=== PATIENT | female | born 1940 | race Caucasian/White ===

== ENCOUNTER 2022-03-05 19:28 | Emergency (ER) | payer MEDICARE, OTHER ==
[2022-03-05 20:44] LABS: #Basophils 0.1 thou/uL (0.0-0.2); #Eosinphils 0.2 thou/uL (0.0-0.7); #Lymphocytes 1.4 thou/uL (1.20-3.40); #Monocytes 1.5 thou/uL (0.11-0.59); #Neutrophils 11.2 thou/uL (1.40-6.50); %Basophils 0.8 % (0.0-1.0); %Eosinophils 1.1 % (0.0-10.0); %Lymphocytes 9.5 % (21.0-51.0); %Monocytes 10.6 % (0.0-10.0); Hemoglobin 12.7 g/dL (12.0-16.0); Mean Corpuscular HGB CONC 32.6 g/dL (32.0-36.0); Mean Corpuscular Hemoglobin 32.6 pg (27.0-31.0); Mean Corpuscular Volume 100.2 fL (78.0-98.0); Mean Platelet Volume 7.4 fL (7.4-10.4); Platelet Count 170 thou/uL (130-400); RBC Distribution Width 13.6 % (11.5-14.5); Red Blood Cell (RBC) Count 3.88 mill/uL (4.20-5.40); White Blood Cell (WBC) Count 14.4 thou/uL (4.8-10.8)
[2022-03-05 20:54] LABS: INR-International Normal Ratio 1.1; Prothrombin Time 14.7 sec (12.0-14.7)
[2022-03-05 21:04] LABS: ALT (SGPT) 14 U/L (8-55); AST (SGOT) 27 U/L (5-34); Albumin 3.1 g/dL (3.4-4.8); Alkaline Phosphatase 57 U/L (40-110); Anion Gap 16 mmol/L (10-20); BUN (Urea Nitrogen) 18 mg/dL (9.8-20.1); Bilirubin, Total 1.3 mg/dL (0.2-1.2); Calc. Creatinine Clearance 0 mL/min (70-130); Calcium 8.6 mg/dL (7.8-10.44); Carbon Dioxide 20 mmol/L (23-31); Chloride 109 mmol/L (98-107); Globulin 2.8 g/dL (2.4-3.5); Glucose 80 mg/dL (83-110); Potassium 3.9 mmol/L (3.5-5.1); Protein, Total 5.9 g/dL (5.8-8.1); Sodium 141 mmol/L (136-145)
[2022-03-05] MEDS ORDERED: Morphine 4 MG/ML VIAL ONE (23:31)
[2022-03-05] MEDS ORDERED: Sulfameth/Trimethoprim DS 800-160mg TAB ONE (23:32)
[2022-03-05] MEDS ORDERED: Cephalexin 500 MG CAP ONE (23:32)
== END 2022-03-06 00:20 | disposition short-term general hospital (02) ==
LOC: MADERS 19:28
DX: S32.591A Other specified fracture of right pubis, initial encounter for closed fracture (principal); S32.511A Fracture of superior rim of right pubis, initial encounter for closed fracture; E05.90 Thyrotoxicosis, unspecified without thyrotoxic crisis or storm; F17.210 Nicotine dependence, cigarettes, uncomplicated; Z79.899 Other long term (current) drug therapy; W19.XXXA Unspecified fall, initial encounter
CPT/HCPCS: 72192; 80053; 85025; 85610; 96374; J2270

== ENCOUNTER 2022-03-11 20:25 | Inpatient (IN) | payer MEDICARE, OTHER ==
[2022-03-11] MEDS ORDERED: Senokot S 8.6-50 MG TAB PO PRN (22:11)
[2022-03-11] MEDS ORDERED: Ondansetron ODT 4 MG TAB PO PRN (22:11)
[2022-03-12] MEDS: Levothyroxine Sodium 88 MCG TAB PO SCH (05:34)
[2022-03-12] MEDS ORDERED: Benzonatate 100 MG CAP PO PRN (06:32)
[2022-03-12] MEDS: Polyethylene Glycol 3350 17 GM Packet PO SCH (08:20)
[2022-03-12] MEDS: Gabapentin 100 MG CAP PO SCH ×2 (08:20→20:14)
[2022-03-12] MEDS: Budesonide 0.5 MG/2 ML NEB NEB SCH ×2 (08:20→20:13)
[2022-03-12] MEDS: Heparin 5,000 UNITS/ML VIAL SC SCH ×2 (08:21→20:13)
[2022-03-12] MEDS: Famotidine 20 MG TAB PO SCH ×2 (08:21→20:14)
[2022-03-12] MEDS: traMADol HCl 50 MG TAB PO PRN (11:16)
[2022-03-12] MEDS: Melatonin 3 MG TAB PO SCH (20:14)
[2022-03-12] MEDS ORDERED: Famotidine 20 MG TAB PO SCH (21:00)
[2022-03-13] MEDS: Levothyroxine Sodium 88 MCG TAB PO SCH (05:19)
[2022-03-13] MEDS: Gabapentin 100 MG CAP PO SCH ×2 (08:53→20:18)
[2022-03-13] MEDS: Famotidine 20 MG TAB PO SCH ×2 (08:53→20:18)
[2022-03-13] MEDS: Polyethylene Glycol 3350 17 GM Packet PO SCH (08:53)
[2022-03-13] MEDS: Heparin 5,000 UNITS/ML VIAL SC SCH ×2 (08:55→20:19)
[2022-03-13] MEDS: Budesonide 0.5 MG/2 ML NEB NEB SCH ×2 (11:40→22:37)
[2022-03-13] MEDS ORDERED: Budesonide 0.5 MG/2 ML NEB ONE (19:43)
[2022-03-13] MEDS: Melatonin 3 MG TAB PO SCH (20:19)
[2022-03-13] MEDS: Cyclobenzaprine 10 MG TAB PO PRN (20:20)
[2022-03-14] MEDS: Levothyroxine Sodium 88 MCG TAB PO SCH (05:46)
[2022-03-14] MEDS: Gabapentin 100 MG CAP PO SCH ×2 (08:30→21:04)
[2022-03-14] MEDS: Famotidine 20 MG TAB PO SCH ×2 (08:31→21:02)
[2022-03-14] MEDS: Budesonide 0.5 MG/2 ML NEB NEB SCH ×2 (08:32→21:05)
[2022-03-14] MEDS: Polyethylene Glycol 3350 17 GM Packet PO SCH (08:34)
[2022-03-14] MEDS: Heparin 5,000 UNITS/ML VIAL SC SCH ×2 (08:36→21:03)
[2022-03-14] MEDS: traMADol HCl 50 MG TAB PO PRN (10:18)
[2022-03-14] MEDS: Melatonin 3 MG TAB PO SCH (21:02)
[2022-03-14] MEDS: Acetaminophen 325 MG TAB PO PRN (21:17)
[2022-03-15] MEDS: Levothyroxine Sodium 88 MCG TAB PO SCH (05:50)
[2022-03-15] MEDS: traMADol HCl 50 MG TAB PO PRN (07:31)
[2022-03-15] MEDS: Gabapentin 100 MG CAP PO SCH ×2 (08:40→21:31)
[2022-03-15] MEDS: Budesonide 0.5 MG/2 ML NEB NEB SCH ×2 (08:40→21:32)
[2022-03-15] MEDS: Polyethylene Glycol 3350 17 GM Packet PO SCH (08:40)
[2022-03-15] MEDS: Famotidine 20 MG TAB PO SCH ×2 (08:40→21:32)
[2022-03-15] MEDS: Heparin 5,000 UNITS/ML VIAL SC SCH ×2 (08:40→21:34)
[2022-03-15] MEDS ORDERED: Milk Of Magnesia 30 ML UDCUP PO PRN (17:46)
[2022-03-15] MEDS: Melatonin 3 MG TAB PO SCH (21:32)
[2022-03-16] MEDS: Levothyroxine Sodium 88 MCG TAB PO SCH (06:11)
[2022-03-16] MEDS: Famotidine 20 MG TAB PO SCH ×2 (08:38→21:54)
[2022-03-16] MEDS: Gabapentin 100 MG CAP PO SCH ×2 (08:38→21:54)
[2022-03-16] MEDS: Polyethylene Glycol 3350 17 GM Packet PO SCH (08:39)
[2022-03-16] MEDS: Budesonide 0.5 MG/2 ML NEB NEB SCH ×2 (08:39→21:56)
[2022-03-16] MEDS: Heparin 5,000 UNITS/ML VIAL SC SCH ×2 (08:40→21:55)
[2022-03-16] MEDS: traMADol HCl 50 MG TAB PO PRN (11:57)
[2022-03-16] MEDS: Melatonin 3 MG TAB PO SCH (21:54)
[2022-03-17] MEDS: Levothyroxine Sodium 88 MCG TAB PO SCH (06:22)
[2022-03-17] MEDS: Famotidine 20 MG TAB PO SCH ×2 (08:37→20:15)
[2022-03-17] MEDS: Gabapentin 100 MG CAP PO SCH ×2 (08:37→20:16)
[2022-03-17] MEDS: Heparin 5,000 UNITS/ML VIAL SC SCH ×2 (08:38→20:16)
[2022-03-17] MEDS: Budesonide 0.5 MG/2 ML NEB NEB SCH ×2 (08:40→20:16)
[2022-03-17] MEDS: Polyethylene Glycol 3350 17 GM Packet PO SCH (08:55)
[2022-03-17] MEDS: traMADol HCl 50 MG TAB PO PRN (09:01)
[2022-03-17] MEDS: Acetaminophen 325 MG TAB PO PRN (17:37)
[2022-03-17] MEDS: Melatonin 3 MG TAB PO SCH (20:17)
[2022-03-18] MEDS: Levothyroxine Sodium 88 MCG TAB PO SCH (05:35)
[2022-03-18] MEDS: Gabapentin 100 MG CAP PO SCH ×2 (08:17→20:05)
[2022-03-18] MEDS: Budesonide 0.5 MG/2 ML NEB NEB SCH ×2 (08:18→20:04)
[2022-03-18] MEDS: Famotidine 20 MG TAB PO SCH ×2 (08:18→20:05)
[2022-03-18] MEDS: Heparin 5,000 UNITS/ML VIAL SC SCH ×2 (08:18→20:08)
[2022-03-18] MEDS: Polyethylene Glycol 3350 17 GM Packet PO SCH (08:31)
[2022-03-18] MEDS: traMADol HCl 50 MG TAB PO PRN (14:36)
[2022-03-18] MEDS: Melatonin 3 MG TAB PO SCH (20:06)
[2022-03-19] MEDS: Levothyroxine Sodium 88 MCG TAB PO SCH (06:26)
[2022-03-19] MEDS: Gabapentin 100 MG CAP PO SCH ×2 (08:17→20:45)
[2022-03-19] MEDS: Famotidine 20 MG TAB PO SCH ×2 (08:17→20:47)
[2022-03-19] MEDS: Polyethylene Glycol 3350 17 GM Packet PO SCH (08:18)
[2022-03-19] MEDS: Heparin 5,000 UNITS/ML VIAL SC SCH ×2 (08:20→20:48)
[2022-03-19] MEDS: Budesonide 0.5 MG/2 ML NEB NEB SCH ×2 (08:20→20:43)
[2022-03-19] MEDS: Melatonin 3 MG TAB PO SCH (20:47)
[2022-03-20] MEDS: Levothyroxine Sodium 88 MCG TAB PO SCH (05:11)
[2022-03-20] MEDS: Polyethylene Glycol 3350 17 GM Packet PO SCH (08:20)
[2022-03-20] MEDS: Famotidine 20 MG TAB PO SCH ×2 (08:21→20:32)
[2022-03-20] MEDS: Budesonide 0.5 MG/2 ML NEB NEB SCH ×2 (08:21→20:34)
[2022-03-20] MEDS: Gabapentin 100 MG CAP PO SCH ×2 (08:27→20:33)
[2022-03-20] MEDS: Heparin 5,000 UNITS/ML VIAL SC SCH ×2 (08:32→20:32)
[2022-03-20] MEDS: Acetaminophen 325 MG TAB PO PRN (12:34)
[2022-03-20] MEDS: Melatonin 3 MG TAB PO SCH (20:33)
[2022-03-21] MEDS: Cyclobenzaprine 10 MG TAB PO PRN ×2 (02:34→21:59)
[2022-03-21] MEDS: traMADol HCl 50 MG TAB PO PRN (02:35)
[2022-03-21] MEDS: Levothyroxine Sodium 88 MCG TAB PO SCH (05:46)
[2022-03-21] MEDS: Heparin 5,000 UNITS/ML VIAL SC SCH ×2 (08:28→21:12)
[2022-03-21] MEDS: Famotidine 20 MG TAB PO SCH ×2 (08:28→21:11)
[2022-03-21] MEDS: Gabapentin 100 MG CAP PO SCH ×2 (08:28→21:10)
[2022-03-21] MEDS: Budesonide 0.5 MG/2 ML NEB NEB SCH ×2 (08:28→21:12)
[2022-03-21] MEDS: Polyethylene Glycol 3350 17 GM Packet PO SCH (08:28)
[2022-03-21] MEDS: Melatonin 3 MG TAB PO SCH (21:11)
[2022-03-22] MEDS: Levothyroxine Sodium 88 MCG TAB PO SCH (05:29)
[2022-03-22] MEDS: Gabapentin 100 MG CAP PO SCH ×2 (08:36→20:50)
[2022-03-22] MEDS: Budesonide 0.5 MG/2 ML NEB NEB SCH ×2 (08:36→20:51)
[2022-03-22] MEDS: Famotidine 20 MG TAB PO SCH ×2 (08:36→20:50)
[2022-03-22] MEDS: Heparin 5,000 UNITS/ML VIAL SC SCH ×2 (08:37→20:52)
[2022-03-22] MEDS: Polyethylene Glycol 3350 17 GM Packet PO SCH (08:52)
[2022-03-22] MEDS: traMADol HCl 50 MG TAB PO PRN (14:51)
[2022-03-22] MEDS: Melatonin 3 MG TAB PO SCH (20:53)
[2022-03-23] MEDS: Levothyroxine Sodium 88 MCG TAB PO SCH (05:35)
[2022-03-23] MEDS: Heparin 5,000 UNITS/ML VIAL SC SCH ×2 (08:32→21:12)
[2022-03-23] MEDS: Gabapentin 100 MG CAP PO SCH ×2 (08:33→21:11)
[2022-03-23] MEDS: Polyethylene Glycol 3350 17 GM Packet PO SCH (08:33)
[2022-03-23] MEDS: Budesonide 0.5 MG/2 ML NEB NEB SCH ×2 (08:33→21:10)
[2022-03-23] MEDS: Famotidine 20 MG TAB PO SCH ×2 (08:34→21:12)
[2022-03-23] MEDS: Acetaminophen 325 MG TAB PO PRN (21:11)
[2022-03-23] MEDS: Melatonin 3 MG TAB PO SCH (21:12)
[2022-03-24] MEDS: Levothyroxine Sodium 88 MCG TAB PO SCH (05:31)
[2022-03-24] MEDS: Polyethylene Glycol 3350 17 GM Packet PO SCH (08:48)
[2022-03-24] MEDS: Acetaminophen 325 MG TAB PO PRN ×2 (08:49→21:47)
[2022-03-24] MEDS: Famotidine 20 MG TAB PO SCH ×2 (08:49→21:40)
[2022-03-24] MEDS: Gabapentin 100 MG CAP PO SCH ×2 (08:49→21:39)
[2022-03-24] MEDS: Heparin 5,000 UNITS/ML VIAL SC SCH ×2 (08:50→21:41)
[2022-03-24] MEDS: Budesonide 0.5 MG/2 ML NEB NEB SCH ×2 (08:52→21:41)
[2022-03-24] MEDS: Melatonin 3 MG TAB PO SCH (21:58)
[2022-03-25] MEDS: Levothyroxine Sodium 88 MCG TAB PO SCH (05:58)
[2022-03-25] MEDS: Budesonide 0.5 MG/2 ML NEB NEB SCH ×2 (08:19→21:20)
[2022-03-25] MEDS: Gabapentin 100 MG CAP PO SCH ×2 (08:19→21:18)
[2022-03-25] MEDS: Famotidine 20 MG TAB PO SCH ×2 (08:19→21:18)
[2022-03-25] MEDS: Heparin 5,000 UNITS/ML VIAL SC SCH ×2 (08:20→21:19)
[2022-03-25] MEDS: Acetaminophen 325 MG TAB PO PRN ×2 (08:20→21:19)
[2022-03-25] MEDS: Polyethylene Glycol 3350 17 GM Packet PO SCH (08:22)
[2022-03-25] MEDS ORDERED: Polyethylene Glycol 3350 17 GM Packet PO PRN (11:30)
[2022-03-25] MEDS: Melatonin 3 MG TAB PO SCH (21:18)
[2022-03-26] MEDS: Levothyroxine Sodium 88 MCG TAB PO SCH (05:49)
[2022-03-26] MEDS: Acetaminophen 325 MG TAB PO PRN (08:01)
[2022-03-26] MEDS: Famotidine 20 MG TAB PO SCH ×2 (08:01→20:01)
[2022-03-26] MEDS: Budesonide 0.5 MG/2 ML NEB NEB SCH ×2 (08:01→20:00)
[2022-03-26] MEDS: Gabapentin 100 MG CAP PO SCH ×2 (08:02→20:01)
[2022-03-26] MEDS: Heparin 5,000 UNITS/ML VIAL SC SCH ×2 (08:02→20:01)
[2022-03-26] MEDS: Melatonin 3 MG TAB PO SCH (20:01)
[2022-03-27] MEDS: Levothyroxine Sodium 88 MCG TAB PO SCH (05:42)
[2022-03-27] MEDS: Budesonide 0.5 MG/2 ML NEB NEB SCH ×2 (08:08→21:35)
[2022-03-27] MEDS: Gabapentin 100 MG CAP PO SCH ×2 (08:08→21:34)
[2022-03-27] MEDS: Acetaminophen 325 MG TAB PO PRN ×2 (08:09→21:35)
[2022-03-27] MEDS: Famotidine 20 MG TAB PO SCH ×2 (08:09→21:33)
[2022-03-27] MEDS: Heparin 5,000 UNITS/ML VIAL SC SCH ×2 (09:10→21:35)
[2022-03-27] MEDS: Melatonin 3 MG TAB PO SCH (21:33)
[2022-03-28] MEDS: Levothyroxine Sodium 88 MCG TAB PO SCH (05:59)
[2022-03-28] MEDS: Gabapentin 100 MG CAP PO SCH ×2 (08:07→20:22)
[2022-03-28] MEDS: Budesonide 0.5 MG/2 ML NEB NEB SCH ×2 (08:07→20:23)
[2022-03-28] MEDS: Famotidine 20 MG TAB PO SCH ×2 (08:07→20:23)
[2022-03-28] MEDS: Heparin 5,000 UNITS/ML VIAL SC SCH ×2 (08:08→20:21)
[2022-03-28] MEDS: Acetaminophen 325 MG TAB PO PRN (10:53)
[2022-03-28 14:56] LABS: Bilirubin Negative (Negative); Blood, Urine Small (Negative); Clarity Cloudy (Clear); Glucose, Urine (Dipstick) Negative (Negative); Ketone, Urine Negative (Negative); Leukocyte Small (Negative); Nitrite Negative (Negative); Protein, Urine (Dipstick) Negative (Neg-Trace); Specific Gravity, Urine 1.015 (1.005-1.030); Urobilinogen 0.2 mg/dL (Less than 2); pH, Urine 5.5 (5.0-9.0)
[2022-03-28 15:04] LABS: Bacteria/HPF 2+ HPF (None Seen); RBC/HPF 0-3 HPF (0-3); Squamous Epithelial 0-3 HPF (0-3); WBC/HPF Greater Than 50 HPF (0-3)
[2022-03-28 15:06] LABS: Urine Culture Reflex Yes Yes
[2022-03-28] MEDS: Melatonin 3 MG TAB PO SCH (20:23)
[2022-03-29] MEDS: Levothyroxine Sodium 88 MCG TAB PO SCH (06:01)
[2022-03-29] MEDS: traMADol HCl 50 MG TAB PO PRN (09:00)
[2022-03-29] MEDS: Famotidine 20 MG TAB PO SCH ×2 (09:00→20:37)
[2022-03-29] MEDS: Budesonide 0.5 MG/2 ML NEB NEB SCH ×2 (09:01→20:36)
[2022-03-29] MEDS: Gabapentin 100 MG CAP PO SCH ×2 (09:01→20:37)
[2022-03-29] MEDS: Heparin 5,000 UNITS/ML VIAL SC SCH ×2 (09:02→20:38)
[2022-03-29 13:51] VITALS: BMI 17.8
[2022-03-29] MEDS: Melatonin 3 MG TAB PO SCH (20:36)
[2022-03-30] MEDS: Levothyroxine Sodium 88 MCG TAB PO SCH (05:33)
[2022-03-30] MEDS: traMADol HCl 50 MG TAB PO PRN (05:45)
[2022-03-30] MEDS: Budesonide 0.5 MG/2 ML NEB NEB SCH ×2 (08:59→21:12)
[2022-03-30] MEDS: Gabapentin 100 MG CAP PO SCH ×2 (09:00→21:11)
[2022-03-30] MEDS: Famotidine 20 MG TAB PO SCH ×2 (09:01→21:11)
[2022-03-30] MEDS: Heparin 5,000 UNITS/ML VIAL SC SCH ×2 (09:01→21:13)
[2022-03-30] MEDS ORDERED: Sulfameth/Trimethoprim DS 800-160mg TAB PO SCH (13:30)
[2022-03-30] MEDS: Sulfameth/Trimethoprim DS 800-160mg TAB PO SCH (21:11)
[2022-03-30] MEDS: Melatonin 3 MG TAB PO SCH (21:12)
[2022-03-30] MEDS: Acetaminophen 325 MG TAB PO PRN (21:14)
[2022-03-31] MEDS: Levothyroxine Sodium 88 MCG TAB PO SCH (05:35)
[2022-03-31] MEDS: traMADol HCl 50 MG TAB PO PRN (07:11)
[2022-03-31] MEDS: Sulfameth/Trimethoprim DS 800-160mg TAB PO SCH ×2 (08:14→21:29)
[2022-03-31] MEDS: Heparin 5,000 UNITS/ML VIAL SC SCH ×2 (08:14→21:30)
[2022-03-31] MEDS: Gabapentin 100 MG CAP PO SCH ×2 (08:14→21:28)
[2022-03-31] MEDS: Famotidine 20 MG TAB PO SCH ×2 (08:14→21:30)
[2022-03-31] MEDS: Budesonide 0.5 MG/2 ML NEB NEB SCH ×2 (08:15→21:28)
[2022-03-31] MEDS: Acetaminophen 325 MG TAB PO PRN (21:29)
[2022-03-31] MEDS: Melatonin 3 MG TAB PO SCH (21:30)
[2022-04-01] MEDS: Levothyroxine Sodium 88 MCG TAB PO SCH (05:34)
[2022-04-01] MEDS: Famotidine 20 MG TAB PO SCH ×2 (08:02→20:56)
[2022-04-01] MEDS: Gabapentin 100 MG CAP PO SCH ×2 (08:02→20:56)
[2022-04-01] MEDS: Heparin 5,000 UNITS/ML VIAL SC SCH ×2 (08:03→20:57)
[2022-04-01] MEDS: Budesonide 0.5 MG/2 ML NEB NEB SCH ×2 (08:03→20:55)
[2022-04-01] MEDS: traMADol HCl 50 MG TAB PO PRN ×2 (08:05→21:03)
[2022-04-01] MEDS: Sulfameth/Trimethoprim DS 800-160mg TAB PO SCH ×2 (08:05→20:59)
[2022-04-01 11:26] LABS: SARS-CoV-2 NAA Rapid Test Not Detected (NotDetected)
[2022-04-01] MEDS: Melatonin 3 MG TAB PO SCH (20:58)
[2022-04-02] MEDS: Levothyroxine Sodium 88 MCG TAB PO SCH (06:06)
[2022-04-02 07:28] VITALS: BP 137/62; TEMP 98.5
[2022-04-02] MEDS: Budesonide 0.5 MG/2 ML NEB NEB SCH (09:15)
[2022-04-02] MEDS: Gabapentin 100 MG CAP PO SCH (09:16)
[2022-04-02] MEDS: Sulfameth/Trimethoprim DS 800-160mg TAB PO SCH (09:16)
[2022-04-02] MEDS: Famotidine 20 MG TAB PO SCH (09:16)
[2022-04-02] MEDS: Heparin 5,000 UNITS/ML VIAL SC SCH (09:17)
== END 2022-04-02 14:30 | disposition home health service (06) | DRG 560 ==
LOC: MADMS 20:25 → UNDOADMIN 20:25
PROVIDERS: ADMIT Family Medicine; ATTEND Family Medicine
DX: S32.591D Other specified fracture of right pubis, subsequent encounter for fracture with routine healing (principal); R04.2 Hemoptysis; N39.0 Urinary tract infection, site not specified; R26.81 Unsteadiness on feet; E03.9 Hypothyroidism, unspecified; R91.8 Other nonspecific abnormal finding of lung field; Z60.2 Problems related to living alone; B95.62 Methicillin resistant Staphylococcus aureus infection as the cause of diseases classified elsewhere; T14.8XXA Other injury of unspecified body region, initial encounter; L08.9 Local infection of the skin and subcutaneous tissue, unspecified; R06.89 Other abnormalities of breathing; R33.9 Retention of urine, unspecified; Z66 Do not resuscitate; Z20.822 Contact with and (suspected) exposure to COVID-19; F17.210 Nicotine dependence, cigarettes, uncomplicated; W18.30XD Fall on same level, unspecified, subsequent encounter; Z88.0 Allergy status to penicillin; Z79.890 Hormone replacement therapy; Z79.899 Other long term (current) drug therapy; Z90.49 Acquired absence of other specified parts of digestive tract; Z92.3 Personal history of irradiation; S32.10XD Unspecified fracture of sacrum, subsequent encounter for fracture with routine healing
CPT/HCPCS: 81001; 87070; 87077; 87086; 87186; 87205; 94640; J1644; J7620; J7626; U0002; U0003; U0005

== ENCOUNTER 2022-04-03 14:13 | Inpatient (IN) | payer MEDICARE, OTHER ==
[2022-04-03 18:09] LABS: ALT (SGPT) 24 U/L (8-55); AST (SGOT) 39 U/L (5-34); Albumin 3.1 g/dL (3.4-4.8); Alkaline Phosphatase 176 U/L (40-110); Anion Gap 15 mmol/L (10-20); BUN (Urea Nitrogen) 28 mg/dL (9.8-20.1); Bilirubin, Total 1.5 mg/dL (0.2-1.2); Calc. Creatinine Clearance 0 mL/min (70-130); Calcium 8.8 mg/dL (7.8-10.44); Carbon Dioxide 19 mmol/L (23-31); Chloride 108 mmol/L (98-107); Globulin 3.4 g/dL (2.4-3.5); Glucose 78 mg/dL (83-110); Potassium 5.1 mmol/L (3.5-5.1); Protein, Total 6.5 g/dL (5.8-8.1); Sodium 137 mmol/L (136-145)
[2022-04-03 18:14] LABS: Band 3 % (5-11); Hemoglobin 10.1 g/dL (12.0-16.0); Hypochromia SLIGHT = 6-15 cells (100X) (0-5/hpf); Lymphocytes 17 % (21-51); MDiff Complete? YES; Mean Corpuscular HGB CONC 32.1 g/dL (32.0-36.0); Mean Corpuscular Hemoglobin 32.6 pg (27.0-31.0); Mean Corpuscular Volume 101.7 fL (78.0-98.0); Mean Platelet Volume 7.8 fL (7.4-10.4); Monocytes 6 % (0-10); Neutrophil 74 % (42-75); Platelet Count 246 thou/uL (130-400); Platelet Morphology Comment Appears Adequate; RBC Distribution Width 14.2 % (11.5-14.5); Red Blood Cell (RBC) Count 3.08 mill/uL (4.20-5.40); White Blood Cell (WBC) Count 14.9 thou/uL (4.8-10.8)
[2022-04-03] MEDS ORDERED: Ondansetron ODT 4 MG TAB SL PRN (18:30)
[2022-04-03] MEDS ORDERED: Ondansetron PF 4 MG/2 ML Vial IVP PRN (18:30)
[2022-04-03] MEDS ORDERED: Acetaminophen 325 MG TAB PO PRN ×2 (18:30→19:46)
[2022-04-03] MEDS: HYDROcodone/Acetaminophen 5/325 mg Tablet PO PRN (22:13)
[2022-04-03] MEDS: Gabapentin 100 MG CAP PO SCH (22:15)
[2022-04-03] MEDS: Melatonin 3 MG TAB PO SCH (22:15)
[2022-04-03] MEDS: Sulfameth/Trimethoprim DS 800-160mg TAB PO SCH (22:15)
[2022-04-03] MEDS: Famotidine 20 MG TAB PO SCH (22:16)
[2022-04-03] MEDS: Budesonide 0.5 MG/2 ML NEB NEB SCH (22:16)
[2022-04-04] MEDS: HYDROcodone/Acetaminophen 5/325 mg Tablet PO PRN ×2 (08:19→16:44)
[2022-04-04] MEDS: Gabapentin 100 MG CAP PO SCH ×2 (08:20→21:23)
[2022-04-04] MEDS: Sulfameth/Trimethoprim DS 800-160mg TAB PO SCH ×2 (08:20→21:23)
[2022-04-04] MEDS: Budesonide 0.5 MG/2 ML NEB NEB SCH ×2 (08:21→21:24)
[2022-04-04] MEDS: traMADol HCl 50 MG TAB PO PRN (21:22)
[2022-04-04] MEDS: Melatonin 3 MG TAB PO SCH (21:23)
[2022-04-04] MEDS: Famotidine 20 MG TAB PO SCH (21:23)
[2022-04-05] MEDS: HYDROcodone/Acetaminophen 5/325 mg Tablet PO PRN ×2 (07:33→15:54)
[2022-04-05] MEDS: Gabapentin 100 MG CAP PO SCH ×2 (08:12→21:27)
[2022-04-05] MEDS: Budesonide 0.5 MG/2 ML NEB NEB SCH ×2 (08:13→21:28)
[2022-04-05] MEDS: Sulfameth/Trimethoprim DS 800-160mg TAB PO SCH ×2 (08:13→21:27)
[2022-04-05] MEDS: Cyclobenzaprine 10 MG TAB PO PRN ×2 (08:14→21:25)
[2022-04-05] MEDS: traMADol HCl 50 MG TAB PO PRN ×2 (12:57→21:26)
[2022-04-05 19:33] LABS: Bilirubin Negative (Negative); Blood, Urine Negative (Negative); Glucose, Urine (Dipstick) Negative (Negative); Ketone, Urine Trace mg/dL (Negative); Leukocyte Negative (Negative); Nitrite Negative (Negative); Protein, Urine (Dipstick) Negative (Neg-Trace); Specific Gravity, Urine 1.025 (1.005-1.030); Urobilinogen 0.2 mg/dL (Less than 2); pH, Urine 5.5 (5.0-9.0)
[2022-04-05 19:35] LABS: Clarity Hazy (Clear)
[2022-04-05 19:36] LABS: Urine Culture Reflex No No
[2022-04-05 19:40] LABS: Bacteria/HPF 3+ HPF (None Seen); RBC/HPF 0-3 HPF (0-3); Squamous Epithelial 0-3 HPF (0-3)
[2022-04-05] MEDS: Famotidine 20 MG TAB PO SCH (21:27)
[2022-04-05] MEDS: Melatonin 3 MG TAB PO SCH (21:35)
[2022-04-06] MEDS: Milk Of Magnesia 30 ML UDCUP PO PRN (05:30)
[2022-04-06] MEDS: HYDROcodone/Acetaminophen 5/325 mg Tablet PO PRN ×2 (07:30→13:46)
[2022-04-06] MEDS: Gabapentin 100 MG CAP PO SCH ×2 (07:31→20:13)
[2022-04-06] MEDS: Budesonide 0.5 MG/2 ML NEB NEB SCH ×2 (07:31→20:12)
[2022-04-06] MEDS: Sulfameth/Trimethoprim DS 800-160mg TAB PO SCH ×2 (07:31→20:13)
[2022-04-06] MEDS: traMADol HCl 50 MG TAB PO PRN (17:17)
[2022-04-06] MEDS: Cyclobenzaprine 10 MG TAB PO PRN (20:12)
[2022-04-06] MEDS: Melatonin 3 MG TAB PO SCH (20:13)
[2022-04-06] MEDS: Famotidine 20 MG TAB PO SCH (20:13)
[2022-04-07] MEDS: HYDROcodone/Acetaminophen 5/325 mg Tablet PO PRN ×2 (01:32→08:28)
[2022-04-07] MEDS: traMADol HCl 50 MG TAB PO PRN (05:38)
[2022-04-07] MEDS: Budesonide 0.5 MG/2 ML NEB NEB SCH ×2 (08:29→22:18)
[2022-04-07] MEDS: Gabapentin 100 MG CAP PO SCH ×2 (08:29→22:17)
[2022-04-07] MEDS: Sulfameth/Trimethoprim DS 800-160mg TAB PO SCH ×2 (08:29→22:19)
[2022-04-07] MEDS: Acetaminophen 325 MG TAB PO PRN (14:44)
[2022-04-07] MEDS: Milk Of Magnesia 30 ML UDCUP PO PRN (14:44)
[2022-04-07 15:56] LABS: Bilirubin Small (Negative); Blood, Urine Large (Negative); Glucose, Urine (Dipstick) Negative (Negative); Ketone, Urine Trace mg/dL (Negative); Leukocyte Small (Negative); Nitrite Negative (Negative); Protein, Urine (Dipstick) 100 mg/dL (Neg-Trace); Specific Gravity, Urine 1.025 (1.005-1.030); pH, Urine 5.5 (5.0-9.0)
[2022-04-07 16:06] LABS: Clarity Cloudy (Clear)
[2022-04-07 16:09] LABS: RBC/HPF Greater than 50 HPF (0-3)
[2022-04-07 16:13] LABS: Bacteria/HPF Rare-Few HPF (None Seen); Squamous Epithelial 0-3 HPF (0-3)
[2022-04-07 16:14] LABS: Urine Culture Reflex Yes Yes
[2022-04-07 18:46] LABS: Anion Gap 14 mmol/L (10-20); BUN (Urea Nitrogen) 30 mg/dL (9.8-20.1); Calc. Creatinine Clearance 26 mL/min (70-130); Carbon Dioxide 21 mmol/L (23-31); Chloride 104 mmol/L (98-107); Glucose 142 mg/dL (83-110); Potassium 5.3 mmol/L (3.5-5.1); Sodium 134 mmol/L (136-145)
[2022-04-07 19:01] LABS: Band 1 % (5-11); Eosinophils 1 % (0-10); Lymphocytes 6 % (21-51); MDiff Complete? YES; Macrocytosis SLIGHT = 6-15 cells (100X) (0-5/hpf); Mean Corpuscular HGB CONC 32.8 g/dL (32.0-36.0); Mean Corpuscular Volume 100.6 fL (78.0-98.0); Mean Platelet Volume 7.5 fL (7.4-10.4); Monocytes 11 % (0-10); Neutrophil 79 % (42-75); Platelet Count 310 thou/uL (130-400); Platelet Morphology Comment Appears Adequate; RBC Distribution Width 14.1 % (11.5-14.5); Reactive Lymphocytes 2 % (0-10); Red Blood Cell (RBC) Count 3.32 mill/uL (4.20-5.40)
[2022-04-07] MEDS: Melatonin 3 MG TAB PO SCH (22:16)
[2022-04-07] MEDS: Famotidine 20 MG TAB PO SCH ×2 (22:17→22:18)
[2022-04-08] MEDS: Acetaminophen 325 MG TAB PO PRN ×2 (08:19→20:16)
[2022-04-08] MEDS: Sulfameth/Trimethoprim DS 800-160mg TAB PO SCH ×2 (08:19→20:15)
[2022-04-08] MEDS: Gabapentin 100 MG CAP PO SCH ×2 (08:20→20:15)
[2022-04-08] MEDS: Budesonide 0.5 MG/2 ML NEB NEB SCH ×2 (08:21→20:17)
[2022-04-08] MEDS: Nitrofurantoin Monohyd/M-Cryst 100 MG CAP PO SCH ×2 (10:16→20:16)
[2022-04-08] MEDS: Milk Of Magnesia 30 ML UDCUP PO PRN (13:31)
[2022-04-08] MEDS: Melatonin 3 MG TAB PO SCH (20:15)
[2022-04-08] MEDS: traMADol HCl 50 MG TAB PO PRN (21:07)
[2022-04-09] MEDS: Sulfameth/Trimethoprim DS 800-160mg TAB PO SCH ×2 (08:13→20:27)
[2022-04-09] MEDS: Budesonide 0.5 MG/2 ML NEB NEB SCH ×2 (08:13→20:25)
[2022-04-09] MEDS: Gabapentin 100 MG CAP PO SCH ×2 (08:13→20:26)
[2022-04-09] MEDS: Nitrofurantoin Monohyd/M-Cryst 100 MG CAP PO SCH ×2 (08:14→20:27)
[2022-04-09] MEDS: traMADol HCl 50 MG TAB PO PRN (08:14)
[2022-04-09] MEDS: Acetaminophen 325 MG TAB PO PRN ×2 (16:06→20:27)
[2022-04-09] MEDS: Famotidine 20 MG TAB PO SCH (20:25)
[2022-04-09] MEDS: Melatonin 3 MG TAB PO SCH (20:26)
[2022-04-10] MEDS ORDERED: ALPRAZolam 0.25 MG TAB PO PRN (08:09)
[2022-04-10] MEDS: Gabapentin 100 MG CAP PO SCH ×2 (09:44→21:38)
[2022-04-10] MEDS: Budesonide 0.5 MG/2 ML NEB NEB SCH ×2 (09:44→23:50)
[2022-04-10] MEDS: Nitrofurantoin Monohyd/M-Cryst 100 MG CAP PO SCH (09:44)
[2022-04-10] MEDS ORDERED: Lorazepam 2 MG/ML VIAL IM SCH (09:45)
[2022-04-10] MEDS ORDERED: Sodium Chloride 0.9% 500 ML IV SCH (10:15)
[2022-04-10] MEDS ORDERED: Vancomycin HCl 750 MG in Sodium Chloride 0.9% 250 ML 250 ML IVPB SCH (10:30)
[2022-04-10] MEDS: Sodium Chloride 0.9% 1,000 ML IV SCH ×2 (11:27→17:18)
[2022-04-10] MEDS: Cyclobenzaprine 10 MG TAB PO PRN (21:28)
[2022-04-10] MEDS: Acetaminophen 325 MG TAB PO PRN (21:29)
[2022-04-10] MEDS: Famotidine 20 MG TAB PO SCH (21:37)
[2022-04-10] MEDS: Melatonin 3 MG TAB PO SCH (23:56)
[2022-04-11] MEDS ORDERED: Sodium Chloride 0.9% 1,000 ML IV SCH (03:18)
[2022-04-11] MEDS: Gabapentin 100 MG CAP PO SCH ×3 (08:44→22:41)
[2022-04-11] MEDS: Budesonide 0.5 MG/2 ML NEB NEB SCH ×2 (08:44→22:50)
[2022-04-11] MEDS: Cyclobenzaprine 10 MG TAB PO PRN (12:06)
[2022-04-11] MEDS: Acetaminophen 325 MG TAB PO PRN ×2 (12:06→22:42)
[2022-04-11 12:21] LABS: Vancomycin, Random 6.5 ug/mL (See Comment)
[2022-04-11 12:23] LABS: Anion Gap 15 mmol/L (10-20); BUN (Urea Nitrogen) 24 mg/dL (9.8-20.1); Calc. Creatinine Clearance 31 mL/min (70-130); Calcium 8.2 mg/dL (7.8-10.44); Carbon Dioxide 16 mmol/L (23-31); Chloride 109 mmol/L (98-107); Glucose 60 mg/dL (83-110); Potassium 5.2 mmol/L (3.5-5.1); Sodium 135 mmol/L (136-145)
[2022-04-11] MEDS ORDERED: Vancomycin HCl 1 GM in Sodium Chloride 0.9% 250 ML 250 ML IVPB SCH (12:30)
[2022-04-11] MEDS: Melatonin 3 MG TAB PO SCH (22:41)
[2022-04-11] MEDS: Famotidine 20 MG TAB PO SCH (22:41)
[2022-04-12] MEDS: traMADol HCl 50 MG TAB PO PRN ×2 (07:38→15:53)
[2022-04-12] MEDS: Gabapentin 100 MG CAP PO SCH ×2 (08:25→22:16)
[2022-04-12] MEDS: Budesonide 0.5 MG/2 ML NEB NEB SCH ×2 (08:29→22:18)
[2022-04-12 12:24] LABS: Vancomycin, Random 12.4 ug/mL (See Comment)
[2022-04-12] MEDS ORDERED: Vancomycin HCl 1 GM in Sodium Chloride 0.9% 250 ML 250 ML IVPB SCH (13:00)
[2022-04-12] MEDS: Melatonin 3 MG TAB PO SCH (22:16)
[2022-04-12] MEDS: Famotidine 20 MG TAB PO SCH (22:16)
[2022-04-13] MEDS: traMADol HCl 50 MG TAB PO PRN (08:05)
[2022-04-13] MEDS: Budesonide 0.5 MG/2 ML NEB NEB SCH ×2 (08:07→20:43)
[2022-04-13] MEDS: Gabapentin 100 MG CAP PO SCH ×2 (08:07→20:40)
[2022-04-13] MEDS: Acetaminophen 325 MG TAB PO PRN (10:42)
[2022-04-13] MEDS: Cyclobenzaprine 10 MG TAB PO PRN (10:42)
[2022-04-13 12:09] LABS: #Basophils 0.2 thou/uL (0.0-0.2); #Eosinphils 0.5 thou/uL (0.0-0.7); #Monocytes 1.4 thou/uL (0.11-0.59); #Neutrophils 7.7 thou/uL (1.40-6.50); %Basophils 1.5 % (0.0-1.0); %Eosinophils 4.3 % (0.0-10.0); %Lymphocytes 8.9 % (21.0-51.0); %Monocytes 12.8 % (0.0-10.0); %Neutrophils 72.5 % (42.0-75.0); Mean Corpuscular HGB CONC 31.1 g/dL (32.0-36.0); Mean Corpuscular Hemoglobin 33.2 pg (27.0-31.0); Mean Corpuscular Volume 106.8 fL (78.0-98.0); Platelet Count 261 thou/uL (130-400); RBC Distribution Width 15.2 % (11.5-14.5); Red Blood Cell (RBC) Count 3.33 mill/uL (4.20-5.40); White Blood Cell (WBC) Count 10.6 thou/uL (4.8-10.8)
[2022-04-13 12:22] LABS: Anion Gap 11 mmol/L (10-20); BUN (Urea Nitrogen) 15 mg/dL (9.8-20.1); Calc. Creatinine Clearance 34 mL/min (70-130); Calcium 9.2 mg/dL (7.8-10.44); Carbon Dioxide 20 mmol/L (23-31); Chloride 110 mmol/L (98-107); Glucose 175 mg/dL (83-110); Potassium 4.4 mmol/L (3.5-5.1); Sodium 137 mmol/L (136-145)
[2022-04-13 12:46] LABS: Anisocytosis SLIGHT = 6-15 cells (100X) (0-5/hpf); Platelet Morphology Comment Appears Adequate; Poikilocytosis SLIGHT = 6-15 cells (100X) (0-5/hpf)
[2022-04-13] MEDS: Famotidine 20 MG TAB PO SCH (20:40)
[2022-04-13] MEDS: Melatonin 3 MG TAB PO SCH (20:41)
[2022-04-13] MEDS: Preparation H Ointment 57 gram tube TOP SCH (20:52)
[2022-04-14 05:45] LABS: ALT (SGPT) 19 U/L (8-55); AST (SGOT) 32 U/L (5-34); Albumin 2.7 g/dL (3.4-4.8); Alkaline Phosphatase 198 U/L (40-110); Anion Gap 13 mmol/L (10-20); BUN (Urea Nitrogen) 15 mg/dL (9.8-20.1); Bilirubin, Total 0.9 mg/dL (0.2-1.2); Calc. Creatinine Clearance 39 mL/min (70-130); Carbon Dioxide 22 mmol/L (23-31); Chloride 108 mmol/L (98-107); Globulin 3.1 g/dL (2.4-3.5); Glucose 95 mg/dL (83-110); Potassium 4.7 mmol/L (3.5-5.1); Protein, Total 5.8 g/dL (5.8-8.1); Sodium 138 mmol/L (136-145)
[2022-04-14] MEDS: traMADol HCl 50 MG TAB PO PRN (06:35)
[2022-04-14] MEDS: Gabapentin 100 MG CAP PO SCH ×2 (09:02→22:17)
[2022-04-14] MEDS: Budesonide 0.5 MG/2 ML NEB NEB SCH ×2 (09:02→22:19)
[2022-04-14] MEDS: Preparation H Ointment 57 gram tube TOP SCH ×2 (10:05→22:20)
[2022-04-14 12:53] LABS: Vancomycin, Trough 10.1 ug/mL
[2022-04-14] MEDS: Vancomycin HCl 1 GM in Sodium Chloride 0.9% 250 ML 250 ML IVPB SCH (13:36)
[2022-04-14] MEDS ORDERED: Lantiseptic Ointment 130 GM JAR TOP PRN (17:22)
[2022-04-14] MEDS: Cyclobenzaprine 10 MG TAB PO PRN (22:18)
[2022-04-14] MEDS: Famotidine 20 MG TAB PO SCH (22:18)
[2022-04-14] MEDS: Melatonin 3 MG TAB PO SCH (22:18)
[2022-04-14] MEDS: Mupirocin 2% Ointment 22 GM Tube TOP SCH (22:20)
[2022-04-14] MEDS: Nystatin Cream 15 GM TUBE TOP SCH (22:22)
[2022-04-15] MEDS: Transdermal Patch Removal TOP SCH (06:30)
[2022-04-15] MEDS: traMADol HCl 50 MG TAB PO PRN (08:22)
[2022-04-15] MEDS: Gabapentin 100 MG CAP PO SCH ×2 (08:24→21:10)
[2022-04-15] MEDS: Budesonide 0.5 MG/2 ML NEB NEB SCH ×2 (08:24→21:08)
[2022-04-15] MEDS: Nystatin Cream 15 GM TUBE TOP SCH ×2 (08:25→21:16)
[2022-04-15] MEDS: Mupirocin 2% Ointment 22 GM Tube TOP SCH ×3 (08:26→21:16)
[2022-04-15] MEDS: Preparation H Ointment 57 gram tube TOP SCH ×2 (08:26→21:24)
[2022-04-15] MEDS: Acetaminophen 325 MG TAB PO PRN ×2 (12:11→21:13)
[2022-04-15] MEDS: Vancomycin HCl 1 GM in Sodium Chloride 0.9% 250 ML 250 ML IVPB SCH (13:00)
[2022-04-15] MEDS: Lidocaine 5% Patch TD SCH (17:44)
[2022-04-15] MEDS: Famotidine 20 MG TAB PO SCH (21:10)
[2022-04-15] MEDS: Melatonin 3 MG TAB PO SCH (21:12)
[2022-04-15] MEDS: Cyclobenzaprine 10 MG TAB PO PRN (21:12)
[2022-04-16] MEDS: Transdermal Patch Removal TOP SCH (06:01)
[2022-04-16] MEDS: traMADol HCl 50 MG TAB PO PRN ×2 (07:18→13:09)
[2022-04-16] MEDS: Mupirocin 2% Ointment 22 GM Tube TOP SCH ×3 (09:11→20:16)
[2022-04-16] MEDS: Nystatin Cream 15 GM TUBE TOP SCH ×2 (09:11→20:16)
[2022-04-16] MEDS: Gabapentin 100 MG CAP PO SCH ×2 (09:12→20:13)
[2022-04-16] MEDS: Milk Of Magnesia 30 ML UDCUP PO PRN (09:12)
[2022-04-16] MEDS: Budesonide 0.5 MG/2 ML NEB NEB SCH ×2 (09:12→20:12)
[2022-04-16] MEDS: Preparation H Ointment 57 gram tube TOP SCH ×2 (09:13→20:16)
[2022-04-16 12:48] LABS: Vancomycin, Trough 17.7 ug/mL
[2022-04-16] MEDS: Vancomycin HCl 1 GM in Sodium Chloride 0.9% 250 ML 250 ML IVPB SCH (13:08)
[2022-04-16] MEDS: Lidocaine 5% Patch TD SCH (17:34)
[2022-04-16] MEDS: Famotidine 20 MG TAB PO SCH (20:12)
[2022-04-16] MEDS: Cyclobenzaprine 10 MG TAB PO PRN (20:14)
[2022-04-16] MEDS: Melatonin 3 MG TAB PO SCH (20:14)
[2022-04-16] MEDS: Acetaminophen 325 MG TAB PO PRN (20:15)
[2022-04-17] MEDS: Transdermal Patch Removal TOP SCH (06:19)
[2022-04-17] MEDS: Gabapentin 100 MG CAP PO SCH ×2 (08:31→21:37)
[2022-04-17] MEDS: Nystatin Cream 15 GM TUBE TOP SCH ×2 (08:32→21:40)
[2022-04-17] MEDS: Mupirocin 2% Ointment 22 GM Tube TOP SCH ×3 (08:32→21:00)
[2022-04-17] MEDS: Budesonide 0.5 MG/2 ML NEB NEB SCH ×2 (08:32→21:33)
[2022-04-17] MEDS: Preparation H Ointment 57 gram tube TOP SCH ×2 (08:33→21:42)
[2022-04-17] MEDS: traMADol HCl 50 MG TAB PO PRN (13:31)
[2022-04-17] MEDS: Lidocaine 5% Patch TD SCH (17:27)
[2022-04-17] MEDS: Melatonin 3 MG TAB PO SCH (21:37)
[2022-04-17] MEDS: Famotidine 20 MG TAB PO SCH (21:37)
[2022-04-17] MEDS: Cyclobenzaprine 10 MG TAB PO PRN (21:49)
[2022-04-18] MEDS: Transdermal Patch Removal TOP SCH (06:11)
[2022-04-18] MEDS: Budesonide 0.5 MG/2 ML NEB NEB SCH ×2 (09:13→20:42)
[2022-04-18] MEDS: Preparation H Ointment 57 gram tube TOP SCH ×2 (09:14→20:47)
[2022-04-18] MEDS: Gabapentin 100 MG CAP PO SCH ×2 (09:14→20:43)
[2022-04-18] MEDS: Nystatin Cream 15 GM TUBE TOP SCH ×2 (09:14→20:47)
[2022-04-18] MEDS: Mupirocin 2% Ointment 22 GM Tube TOP SCH ×3 (09:14→20:47)
[2022-04-18] MEDS: traMADol HCl 50 MG TAB PO PRN (10:47)
[2022-04-18] MEDS: Lidocaine 5% Patch TD SCH (17:18)
[2022-04-18] MEDS: Famotidine 20 MG TAB PO SCH (20:43)
[2022-04-18] MEDS: Melatonin 3 MG TAB PO SCH (20:44)
[2022-04-18] MEDS: Acetaminophen 325 MG TAB PO PRN (20:45)
[2022-04-18] MEDS: Cyclobenzaprine 10 MG TAB PO PRN (20:45)
[2022-04-19] MEDS: Transdermal Patch Removal TOP SCH (05:17)
[2022-04-19] MEDS: traMADol HCl 50 MG TAB PO PRN (08:16)
[2022-04-19] MEDS: Gabapentin 100 MG CAP PO SCH ×2 (08:17→20:39)
[2022-04-19] MEDS: Budesonide 0.5 MG/2 ML NEB NEB SCH ×2 (08:18→20:38)
[2022-04-19] MEDS: Nystatin Cream 15 GM TUBE TOP SCH ×2 (08:19→20:46)
[2022-04-19] MEDS: Preparation H Ointment 57 gram tube TOP SCH ×2 (08:19→20:46)
[2022-04-19] MEDS: Mupirocin 2% Ointment 22 GM Tube TOP SCH ×3 (08:20→20:46)
[2022-04-19] MEDS: Lidocaine 5% Patch TD SCH (17:29)
[2022-04-19] MEDS: Melatonin 3 MG TAB PO SCH (20:37)
[2022-04-19] MEDS: Famotidine 20 MG TAB PO SCH (20:37)
[2022-04-20] MEDS: Transdermal Patch Removal TOP SCH (06:00)
[2022-04-20] MEDS: traMADol HCl 50 MG TAB PO PRN (08:20)
[2022-04-20] MEDS: Budesonide 0.5 MG/2 ML NEB NEB SCH ×2 (08:21→21:21)
[2022-04-20] MEDS: Gabapentin 100 MG CAP PO SCH ×3 (08:22→21:36)
[2022-04-20] MEDS: Nystatin Cream 15 GM TUBE TOP SCH ×2 (08:23→22:00)
[2022-04-20] MEDS: Preparation H Ointment 57 gram tube TOP SCH (08:23)
[2022-04-20] MEDS: Mupirocin 2% Ointment 22 GM Tube TOP SCH ×2 (08:23→15:35)
[2022-04-20] MEDS: Lidocaine 5% Patch TD SCH (17:14)
[2022-04-20] MEDS: Melatonin 3 MG TAB PO SCH ×2 (21:22→21:35)
[2022-04-20] MEDS: Famotidine 20 MG TAB PO SCH ×2 (21:22→21:31)
[2022-04-21] MEDS: Preparation H Ointment 57 gram tube TOP SCH ×3 (02:55→22:00)
[2022-04-21] MEDS: Mupirocin 2% Ointment 22 GM Tube TOP SCH ×4 (02:55→21:00)
[2022-04-21] MEDS: traMADol HCl 50 MG TAB PO PRN (05:22)
[2022-04-21] MEDS: Transdermal Patch Removal TOP SCH (05:53)
[2022-04-21] MEDS: Gabapentin 100 MG CAP PO SCH ×2 (08:10→21:46)
[2022-04-21] MEDS: Budesonide 0.5 MG/2 ML NEB NEB SCH ×2 (08:10→21:43)
[2022-04-21] MEDS: Nystatin Cream 15 GM TUBE TOP SCH ×2 (08:11→22:00)
[2022-04-21 10:01] LABS: Bilirubin Negative (Negative); Blood, Urine Large (Negative); Clarity Cloudy (Clear); Glucose, Urine (Dipstick) Negative (Negative); Ketone, Urine Negative (Negative); Leukocyte Large (Negative); Nitrite Positive (Negative); Protein, Urine (Dipstick) 100 mg/dL (Neg-Trace); pH, Urine 7.5 (5.0-9.0)
[2022-04-21] MEDS: Ondansetron ODT 4 MG TAB PO PRN (10:02)
[2022-04-21 10:07] LABS: ALT (SGPT) 15 U/L (8-55); AST (SGOT) 28 U/L (5-34); Albumin 2.7 g/dL (3.4-4.8); Alkaline Phosphatase 212 U/L (40-110); Anion Gap 14 mmol/L (10-20); BUN (Urea Nitrogen) 22 mg/dL (9.8-20.1); Calc. Creatinine Clearance 30 mL/min (70-130); Calcium 8.8 mg/dL (7.8-10.44); Carbon Dioxide 27 mmol/L (23-31); Chloride 104 mmol/L (98-107); Estimated GFR 61; Globulin 3.3 g/dL (2.4-3.5); Glucose 97 mg/dL (83-110); Potassium 5.1 mmol/L (3.5-5.1); Sodium 140 mmol/L (136-145)
[2022-04-21 10:09] LABS: Bacteria/HPF 1+ HPF (None Seen); Squamous Epithelial 0-3 HPF (0-3); WBC/HPF Greater than 50 HPF (0-3)
[2022-04-21 10:10] LABS: Urine Culture Reflex Yes Yes
[2022-04-21 10:12] LABS: Hemoglobin 11.4 g/dL (12.0-16.0); Mean Corpuscular HGB CONC 31.6 g/dL (32.0-36.0); Mean Corpuscular Hemoglobin 33.1 pg (27.0-31.0); Mean Corpuscular Volume 104.9 fL (78.0-98.0); Mean Platelet Volume 7.1 fL (7.4-10.4); Platelet Count 274 thou/uL (130-400); RBC Distribution Width 14.6 % (11.5-14.5); Red Blood Cell (RBC) Count 3.44 mill/uL (4.20-5.40); White Blood Cell (WBC) Count 9.1 thou/uL (4.8-10.8)
[2022-04-21 10:20] LABS: Anisocytosis SLIGHT = 6-15 cells (100X) (0-5/hpf); Band 1 % (5-11); Eosinophils 2 % (0-10); Lymphocytes 19 % (21-51); MDiff Complete? YES; Manual Diff?? YES; Monocytes 15 % (0-10); Neutrophil 63 % (42-75); Platelet Morphology Comment Appears Adequate; Poikilocytosis SLIGHT = 6-15 cells (100X) (0-5/hpf)
[2022-04-21] MEDS ORDERED: Dextrose 5 %-0.45 % NaCl 500 ML IV SCH (13:30)
[2022-04-21] MEDS ORDERED: Senokot S 8.6-50 MG TAB PO PRN (14:33)
[2022-04-21] MEDS: Lidocaine 5% Patch TD SCH (17:23)
[2022-04-21] MEDS: Melatonin 3 MG TAB PO SCH (21:46)
[2022-04-21] MEDS: Famotidine 20 MG TAB PO SCH (21:46)
[2022-04-22] MEDS: Transdermal Patch Removal TOP SCH (06:27)
[2022-04-22] MEDS: Ondansetron ODT 4 MG TAB PO PRN (07:45)
[2022-04-22] MEDS: Milk Of Magnesia 30 ML UDCUP PO PRN (07:46)
[2022-04-22] MEDS: Budesonide 0.5 MG/2 ML NEB NEB SCH ×2 (07:46→21:02)
[2022-04-22] MEDS: Gabapentin 100 MG CAP PO SCH ×2 (07:46→21:04)
[2022-04-22] MEDS: Bisacodyl 5 MG TAB PO PRN (07:46)
[2022-04-22] MEDS: Preparation H Ointment 57 gram tube TOP SCH ×2 (07:47→21:07)
[2022-04-22] MEDS: Nystatin Cream 15 GM TUBE TOP SCH ×2 (07:48→21:08)
[2022-04-22] MEDS: Mupirocin 2% Ointment 22 GM Tube TOP SCH ×3 (07:49→21:08)
[2022-04-22] MEDS: Acetaminophen 325 MG TAB PO PRN ×2 (08:06→21:06)
[2022-04-22] MEDS: Cyclobenzaprine 10 MG TAB PO PRN ×2 (08:07→21:05)
[2022-04-22] MEDS: Lidocaine 5% Patch TD SCH (18:26)
[2022-04-22] MEDS: Famotidine 20 MG TAB PO SCH (21:03)
[2022-04-22] MEDS: Melatonin 3 MG TAB PO SCH (21:04)
[2022-04-23] MEDS: Transdermal Patch Removal TOP SCH (05:56)
[2022-04-23] MEDS: Gabapentin 100 MG CAP PO SCH ×2 (08:35→21:09)
[2022-04-23] MEDS: Budesonide 0.5 MG/2 ML NEB NEB SCH ×2 (08:35→21:13)
[2022-04-23] MEDS: Nystatin Cream 15 GM TUBE TOP SCH ×2 (08:36→21:10)
[2022-04-23] MEDS: Mupirocin 2% Ointment 22 GM Tube TOP SCH ×4 (08:36→21:11)
[2022-04-23] MEDS: Preparation H Ointment 57 gram tube TOP SCH ×2 (08:38→21:11)
[2022-04-23] MEDS: Acetaminophen 325 MG TAB PO PRN ×2 (09:21→21:09)
[2022-04-23] MEDS: Lidocaine 5% Patch TD SCH (17:20)
[2022-04-23] MEDS: Famotidine 20 MG TAB PO SCH (21:08)
[2022-04-23] MEDS: Melatonin 3 MG TAB PO SCH (21:08)
[2022-04-23] MEDS: Cyclobenzaprine 10 MG TAB PO PRN (21:08)
[2022-04-24] MEDS: Transdermal Patch Removal TOP SCH (05:33)
[2022-04-24] MEDS: Milk Of Magnesia 30 ML UDCUP PO PRN (05:33)
[2022-04-24] MEDS: Ondansetron ODT 4 MG TAB PO PRN (05:37)
[2022-04-24] MEDS: Budesonide 0.5 MG/2 ML NEB NEB SCH ×2 (08:10→22:03)
[2022-04-24] MEDS: Gabapentin 100 MG CAP PO SCH ×2 (08:10→21:59)
[2022-04-24] MEDS: Nystatin Cream 15 GM TUBE TOP SCH ×2 (08:12→22:30)
[2022-04-24] MEDS: Mupirocin 2% Ointment 22 GM Tube TOP SCH ×4 (08:12→22:30)
[2022-04-24] MEDS: Preparation H Ointment 57 gram tube TOP SCH ×2 (08:12→22:30)
[2022-04-24] MEDS: Lidocaine 5% Patch TD SCH (17:12)
[2022-04-24] MEDS: Acetaminophen 325 MG TAB PO PRN ×2 (17:13→21:56)
[2022-04-24] MEDS: Melatonin 3 MG TAB PO SCH (21:56)
[2022-04-24] MEDS: Cyclobenzaprine 10 MG TAB PO PRN (22:00)
[2022-04-24] MEDS: Famotidine 20 MG TAB PO SCH ×2 (22:00→22:03)
[2022-04-25] MEDS: Transdermal Patch Removal TOP SCH (06:12)
[2022-04-25] MEDS: Gabapentin 100 MG CAP PO SCH ×2 (08:37→21:34)
[2022-04-25] MEDS: Budesonide 0.5 MG/2 ML NEB NEB SCH ×2 (08:37→21:34)
[2022-04-25] MEDS: Preparation H Ointment 57 gram tube TOP SCH ×2 (08:46→21:32)
[2022-04-25] MEDS: Mupirocin 2% Ointment 22 GM Tube TOP SCH ×4 (08:47→21:33)
[2022-04-25] MEDS: Nystatin Cream 15 GM TUBE TOP SCH ×2 (08:47→21:33)
[2022-04-25] MEDS: Lidocaine 5% Patch TD SCH (21:34)
[2022-04-26] MEDS: Melatonin 3 MG TAB PO SCH ×2 (01:11→21:41)
[2022-04-26] MEDS: Gabapentin 100 MG CAP PO SCH ×2 (08:15→21:40)
[2022-04-26] MEDS: Budesonide 0.5 MG/2 ML NEB NEB SCH (08:16)
[2022-04-26] MEDS: Mupirocin 2% Ointment 22 GM Tube TOP SCH ×4 (08:18→23:30)
[2022-04-26] MEDS: Nystatin Cream 15 GM TUBE TOP SCH ×2 (08:19→23:00)
[2022-04-26] MEDS: Preparation H Ointment 57 gram tube TOP SCH (08:20)
[2022-04-26] MEDS: Transdermal Patch Removal TOP SCH (08:22)
[2022-04-26 10:23] VITALS: BMI 16.7
[2022-04-26] MEDS: Lidocaine 5% Patch TD SCH (21:41)
[2022-04-27] MEDS: Budesonide 0.5 MG/2 ML NEB NEB SCH ×3 (02:40→21:34)
[2022-04-27] MEDS: Famotidine 20 MG TAB PO SCH ×2 (02:41→21:36)
[2022-04-27] MEDS: Preparation H Ointment 57 gram tube TOP SCH ×3 (05:20→21:39)
[2022-04-27] MEDS: Gabapentin 100 MG CAP PO SCH ×2 (08:26→21:37)
[2022-04-27] MEDS: Nystatin Cream 15 GM TUBE TOP SCH ×2 (08:28→21:39)
[2022-04-27] MEDS: Mupirocin 2% Ointment 22 GM Tube TOP SCH ×4 (08:28→21:39)
[2022-04-27] MEDS: Transdermal Patch Removal TOP SCH (08:33)
[2022-04-27 11:30] LABS: Ref Lab Test Ordered SUSCEPTABILITY; Reference Lab Name LABCORP
[2022-04-27 13:21] LABS: Bilirubin Negative (Negative); Blood, Urine Moderate (Negative); Glucose, Urine (Dipstick) 100 mg/dL (Negative); Ketone, Urine Negative (Negative); Leukocyte Small (Negative); Nitrite Positive (Negative); Protein, Urine (Dipstick) Negative (Neg-Trace); Specific Gravity, Urine 1.025 (1.005-1.030); Urobilinogen 0.2 mg/dL (Less than 2); pH, Urine 5.5 (5.0-9.0)
[2022-04-27 13:23] LABS: Clarity Cloudy (Clear)
[2022-04-27 13:28] LABS: RBC/HPF Greater than 50 HPF (0-3); Squamous Epithelial 0-3 HPF (0-3); WBC/HPF Greater Than 50 HPF (0-3); Yeast-Hyphae 2+ HPF (None Seen)
[2022-04-27 13:29] LABS: Bacteria/HPF 4+ HPF (None Seen)
[2022-04-27 13:32] LABS: Urine Culture Reflex Yes Yes
[2022-04-27] MEDS: Acetaminophen 325 MG TAB PO PRN (21:35)
[2022-04-27] MEDS: Cyclobenzaprine 10 MG TAB PO PRN (21:35)
[2022-04-27] MEDS: Melatonin 3 MG TAB PO SCH (21:37)
[2022-04-27] MEDS: Lidocaine 5% Patch TD SCH (21:40)
[2022-04-27] MEDS: cefTRIAXone\\ROCEPHIN 1 GM in Sodium Chloride 0.9% 100 ML IVPB SCH (21:42)
[2022-04-28] MEDS: Budesonide 0.5 MG/2 ML NEB NEB SCH ×2 (08:40→21:52)
[2022-04-28] MEDS: Mupirocin 2% Ointment 22 GM Tube TOP SCH ×4 (08:41→21:56)
[2022-04-28] MEDS: Nystatin Cream 15 GM TUBE TOP SCH ×2 (08:41→21:55)
[2022-04-28] MEDS: Preparation H Ointment 57 gram tube TOP SCH ×2 (08:42→21:55)
[2022-04-28] MEDS: Gabapentin 100 MG CAP PO SCH ×2 (08:43→21:54)
[2022-04-28] MEDS: Transdermal Patch Removal TOP SCH (08:45)
[2022-04-28 16:25] LABS: ALT (SGPT) 14 U/L (8-55); AST (SGOT) 22 U/L (5-34); Albumin 2.7 g/dL (3.4-4.8); Alkaline Phosphatase 206 U/L (40-110); Anion Gap 12 mmol/L (10-20); BUN (Urea Nitrogen) 26 mg/dL (9.8-20.1); Bilirubin, Total 0.9 mg/dL (0.2-1.2); Calc. Creatinine Clearance 34 mL/min (70-130); Calcium 8.3 mg/dL (7.8-10.44); Carbon Dioxide 23 mmol/L (23-31); Chloride 109 mmol/L (98-107); Estimated GFR 69; Globulin 3.4 g/dL (2.4-3.5); Glucose 79 mg/dL (83-110); Potassium 4.6 mmol/L (3.5-5.1); Protein, Total 6.1 g/dL (5.8-8.1); Sodium 139 mmol/L (136-145)
[2022-04-28 16:33] LABS: Band 4 % (5-11); Eosinophils 4 % (0-10); Hemoglobin 12.1 g/dL (12.0-16.0); Lymphocytes 27 % (21-51); MDiff Complete? YES; Mean Corpuscular HGB CONC 31.8 g/dL (32.0-36.0); Mean Corpuscular Hemoglobin 32.6 pg (27.0-31.0); Mean Corpuscular Volume 102.5 fL (78.0-98.0); Mean Platelet Volume 7.2 fL (7.4-10.4); Monocytes 4 % (0-10); Neutrophil 57 % (42-75); Platelet Count 282 thou/uL (130-400); Platelet Morphology Comment Appears Adequate; RBC Distribution Width 14.2 % (11.5-14.5); RBC Morphology Normal; Reactive Lymphocytes 1 % (0-10); White Blood Cell (WBC) Count 9.6 thou/uL (4.8-10.8)
[2022-04-28] MEDS: cefTRIAXone\\ROCEPHIN 1 GM in Sodium Chloride 0.9% 100 ML IVPB SCH (21:51)
[2022-04-28] MEDS: Famotidine 20 MG TAB PO SCH (21:53)
[2022-04-28] MEDS: Lidocaine 5% Patch TD SCH (21:54)
[2022-04-28] MEDS: Melatonin 3 MG TAB PO SCH (21:55)
[2022-04-29] MEDS: Budesonide 0.5 MG/2 ML NEB NEB SCH ×2 (08:35→21:00)
[2022-04-29] MEDS: Nystatin Cream 15 GM TUBE TOP SCH ×2 (08:36→21:06)
[2022-04-29] MEDS: Mupirocin 2% Ointment 22 GM Tube TOP SCH ×3 (08:36→21:06)
[2022-04-29] MEDS: Preparation H Ointment 57 gram tube TOP SCH ×2 (08:36→21:06)
[2022-04-29] MEDS: Gabapentin 100 MG CAP PO SCH ×2 (08:36→21:02)
[2022-04-29] MEDS: Transdermal Patch Removal TOP SCH (09:56)
[2022-04-29] MEDS ORDERED: Levothyroxine Sodium 100 MCG TAB PO SCH (10:45)
[2022-04-29] MEDS: Famotidine 20 MG TAB PO SCH (21:02)
[2022-04-29] MEDS: cefTRIAXone\\ROCEPHIN 1 GM in Sodium Chloride 0.9% 100 ML IVPB SCH (21:02)
[2022-04-29] MEDS: Melatonin 3 MG TAB PO SCH (21:05)
[2022-04-29] MEDS: Lidocaine 5% Patch TD SCH (21:05)
[2022-04-30] MEDS: Levothyroxine Sodium 100 MCG TAB PO SCH (05:56)
[2022-04-30] MEDS: Budesonide 0.5 MG/2 ML NEB NEB SCH ×2 (09:03→20:55)
[2022-04-30] MEDS: Milk Of Magnesia 30 ML UDCUP PO PRN (09:03)
[2022-04-30] MEDS: Gabapentin 100 MG CAP PO SCH ×2 (09:03→20:56)
[2022-04-30] MEDS: Bisacodyl 5 MG TAB PO PRN (09:03)
[2022-04-30] MEDS: Nystatin Cream 15 GM TUBE TOP SCH ×2 (09:04→20:54)
[2022-04-30] MEDS: Mupirocin 2% Ointment 22 GM Tube TOP SCH ×2 (09:04→20:55)
[2022-04-30] MEDS: Preparation H Ointment 57 gram tube TOP SCH ×2 (09:05→20:54)
[2022-04-30] MEDS: Transdermal Patch Removal TOP SCH (09:08)
[2022-04-30 11:15] LABS: Follow-up Ref Lab Comp? YES; Follow-up Result - Ref Lab REPORT FAXED
[2022-04-30] MEDS: cefTRIAXone\\ROCEPHIN 1 GM in Sodium Chloride 0.9% 100 ML IVPB SCH (20:50)
[2022-04-30] MEDS: Lidocaine 5% Patch TD SCH (20:54)
[2022-04-30] MEDS: Melatonin 3 MG TAB PO SCH (20:56)
[2022-04-30] MEDS: Famotidine 20 MG TAB PO SCH (20:56)
[2022-05-01] MEDS: Levothyroxine Sodium 100 MCG TAB PO SCH (06:08)
[2022-05-01] MEDS: Preparation H Ointment 57 gram tube TOP SCH ×2 (08:30→21:42)
[2022-05-01] MEDS: Mupirocin 2% Ointment 22 GM Tube TOP SCH ×2 (08:30→21:41)
[2022-05-01] MEDS: Nystatin Cream 15 GM TUBE TOP SCH ×2 (08:30→21:41)
[2022-05-01] MEDS: Transdermal Patch Removal TOP SCH (08:30)
[2022-05-01] MEDS: Gabapentin 100 MG CAP PO SCH ×3 (08:31→21:42)
[2022-05-01] MEDS: Budesonide 0.5 MG/2 ML NEB NEB SCH ×2 (08:32→21:42)
[2022-05-01] MEDS: cefTRIAXone\\ROCEPHIN 1 GM in Sodium Chloride 0.9% 100 ML IVPB SCH (21:40)
[2022-05-01] MEDS: Famotidine 20 MG TAB PO SCH (21:42)
[2022-05-01] MEDS: Melatonin 3 MG TAB PO SCH (21:43)
[2022-05-01] MEDS: Lidocaine 5% Patch TD SCH (21:45)
[2022-05-02] MEDS: Levothyroxine Sodium 100 MCG TAB PO SCH (06:10)
[2022-05-02] MEDS: Budesonide 0.5 MG/2 ML NEB NEB SCH ×2 (08:22→20:27)
[2022-05-02] MEDS: Gabapentin 100 MG CAP PO SCH ×2 (08:25→20:44)
[2022-05-02] MEDS: Mupirocin 2% Ointment 22 GM Tube TOP SCH ×2 (08:25→20:46)
[2022-05-02] MEDS: Preparation H Ointment 57 gram tube TOP SCH ×2 (08:26→22:17)
[2022-05-02] MEDS: Transdermal Patch Removal TOP SCH (08:26)
[2022-05-02] MEDS: Nystatin Cream 15 GM TUBE TOP SCH ×2 (08:26→20:46)
[2022-05-02] MEDS ORDERED: Dextrose 5 %-0.45 % NaCl 500 ML IV SCH (09:00)
[2022-05-02 11:41] LABS: Band 2 % (5-11); Eosinophils 2 % (0-10); Hemoglobin 13.7 g/dL (12.0-16.0); Lymphocytes 15 % (21-51); MDiff Complete? YES; Mean Corpuscular Hemoglobin 32.7 pg (27.0-31.0); Mean Corpuscular Volume 102.1 fL (78.0-98.0); Mean Platelet Volume 7.1 fL (7.4-10.4); Monocytes 2 % (0-10); Neutrophil 79 % (42-75); Platelet Count 310 thou/uL (130-400); Platelet Morphology Comment Appears Adequate; RBC Distribution Width 14.2 % (11.5-14.5); RBC Morphology Normal; White Blood Cell (WBC) Count 8.2 thou/uL (4.8-10.8)
[2022-05-02 11:45] LABS: ALT (SGPT) 17 U/L (8-55); AST (SGOT) 28 U/L (5-34); Albumin 3.1 g/dL (3.4-4.8); Alkaline Phosphatase 243 U/L (40-110); Anion Gap 13 mmol/L (10-20); BUN (Urea Nitrogen) 24 mg/dL (9.8-20.1); Bilirubin, Total 1.1 mg/dL (0.2-1.2); Calc. Creatinine Clearance 30 mL/min (70-130); Calcium 8.5 mg/dL (7.8-10.44); Carbon Dioxide 22 mmol/L (23-31); Chloride 105 mmol/L (98-107); Estimated GFR 60; Glucose 168 mg/dL (83-110); Potassium 3.8 mmol/L (3.5-5.1); Protein, Total 7.1 g/dL (5.8-8.1); Sodium 136 mmol/L (136-145)
[2022-05-02] MEDS: cefTRIAXone\\ROCEPHIN 1 GM in Sodium Chloride 0.9% 100 ML IVPB SCH (20:22)
[2022-05-02] MEDS: Famotidine 20 MG TAB PO SCH (20:32)
[2022-05-02] MEDS: traMADol HCl 50 MG TAB PO PRN (20:32)
[2022-05-02] MEDS: Melatonin 3 MG TAB PO SCH (20:46)
[2022-05-02] MEDS: Lidocaine 5% Patch TD SCH (20:50)
[2022-05-03] MEDS: Levothyroxine Sodium 100 MCG TAB PO SCH (05:30)
[2022-05-03] MEDS: Gabapentin 100 MG CAP PO SCH ×2 (07:59→21:39)
[2022-05-03] MEDS: Budesonide 0.5 MG/2 ML NEB NEB SCH ×2 (07:59→21:39)
[2022-05-03] MEDS: Nystatin Cream 15 GM TUBE TOP SCH ×2 (08:00→21:55)
[2022-05-03] MEDS: Preparation H Ointment 57 gram tube TOP SCH ×2 (08:00→21:55)
[2022-05-03] MEDS: Mupirocin 2% Ointment 22 GM Tube TOP SCH ×2 (08:01→21:55)
[2022-05-03] MEDS: Transdermal Patch Removal TOP SCH (09:47)
[2022-05-03] MEDS: Melatonin 3 MG TAB PO SCH (21:39)
[2022-05-03] MEDS: Famotidine 20 MG TAB PO SCH (21:39)
[2022-05-03] MEDS: Lidocaine 5% Patch TD SCH (21:42)
[2022-05-04] MEDS: Levothyroxine Sodium 100 MCG TAB PO SCH (05:42)
[2022-05-04] MEDS: Mupirocin 2% Ointment 22 GM Tube TOP SCH ×2 (09:41→20:19)
[2022-05-04] MEDS: Budesonide 0.5 MG/2 ML NEB NEB SCH ×2 (09:41→20:16)
[2022-05-04] MEDS: Preparation H Ointment 57 gram tube TOP SCH ×2 (09:42→20:18)
[2022-05-04] MEDS: Nystatin Cream 15 GM TUBE TOP SCH ×2 (09:42→20:19)
[2022-05-04] MEDS: Transdermal Patch Removal TOP SCH (09:42)
[2022-05-04] MEDS: Gabapentin 100 MG CAP PO SCH ×2 (09:44→20:17)
[2022-05-04] MEDS: Melatonin 3 MG TAB PO SCH (20:18)
[2022-05-04] MEDS: Famotidine 20 MG TAB PO SCH (20:18)
[2022-05-04] MEDS: Lidocaine 5% Patch TD SCH (20:18)
[2022-05-05] MEDS: Levothyroxine Sodium 100 MCG TAB PO SCH (05:31)
[2022-05-05] MEDS: Transdermal Patch Removal TOP SCH (10:01)
[2022-05-05] MEDS: Gabapentin 100 MG CAP PO SCH ×2 (10:06→20:42)
[2022-05-05] MEDS: Budesonide 0.5 MG/2 ML NEB NEB SCH (10:07)
[2022-05-05] MEDS: Preparation H Ointment 57 gram tube TOP SCH ×2 (10:09→20:43)
[2022-05-05] MEDS: Nystatin Cream 15 GM TUBE TOP SCH ×2 (10:09→20:43)
[2022-05-05] MEDS: Mupirocin 2% Ointment 22 GM Tube TOP SCH ×2 (10:09→20:43)
[2022-05-05] MEDS: Famotidine 20 MG TAB PO SCH (20:42)
[2022-05-05] MEDS: Melatonin 3 MG TAB PO SCH (20:42)
[2022-05-05] MEDS: Lidocaine 5% Patch TD SCH (20:43)
[2022-05-06] MEDS: Levothyroxine Sodium 100 MCG TAB PO SCH (05:13)
[2022-05-06] MEDS: Gabapentin 100 MG CAP PO SCH (08:32)
[2022-05-06] MEDS: Mupirocin 2% Ointment 22 GM Tube TOP SCH ×2 (08:36→21:32)
[2022-05-06] MEDS: Nystatin Cream 15 GM TUBE TOP SCH ×2 (08:36→21:33)
[2022-05-06] MEDS: Preparation H Ointment 57 gram tube TOP SCH ×2 (08:37→22:35)
[2022-05-06] MEDS: Transdermal Patch Removal TOP SCH (08:38)
[2022-05-06] MEDS: Lidocaine 5% Patch TD SCH (21:25)
[2022-05-06] MEDS: Famotidine 20 MG TAB PO SCH (21:25)
[2022-05-06] MEDS ORDERED: ALPRAZolam 0.25 MG TAB PO PRN (22:19)
[2022-05-06] MEDS ORDERED: ALPRAZolam 0.25 MG TAB PO SCH (22:30)
[2022-05-07] MEDS: Levothyroxine Sodium 100 MCG TAB PO SCH (05:20)
[2022-05-07] MEDS: Mupirocin 2% Ointment 22 GM Tube TOP SCH ×2 (08:16→22:12)
[2022-05-07] MEDS: Preparation H Ointment 57 gram tube TOP SCH ×2 (08:16→22:12)
[2022-05-07] MEDS: Nystatin Cream 15 GM TUBE TOP SCH ×2 (08:16→22:12)
[2022-05-07] MEDS: Transdermal Patch Removal TOP SCH (08:17)
[2022-05-07] MEDS: Famotidine 20 MG TAB PO SCH (22:11)
[2022-05-07] MEDS: Lidocaine 5% Patch TD SCH (22:12)
[2022-05-08] MEDS: Levothyroxine Sodium 100 MCG TAB PO SCH (06:04)
[2022-05-08] MEDS: Transdermal Patch Removal TOP SCH (09:04)
[2022-05-08] MEDS: Preparation H Ointment 57 gram tube TOP SCH ×2 (09:04→20:54)
[2022-05-08] MEDS: Nystatin Cream 15 GM TUBE TOP SCH ×2 (09:04→20:42)
[2022-05-08] MEDS: Mupirocin 2% Ointment 22 GM Tube TOP SCH ×2 (09:04→20:42)
[2022-05-08] MEDS: Famotidine 20 MG TAB PO SCH (20:42)
[2022-05-08] MEDS: Lidocaine 5% Patch TD SCH (20:42)
[2022-05-08] MEDS: Acetaminophen 325 MG TAB PO PRN (20:54)
[2022-05-09] MEDS: Nystatin Cream 15 GM TUBE TOP SCH ×2 (08:43→21:06)
[2022-05-09] MEDS: Levothyroxine Sodium 100 MCG TAB PO SCH (08:43)
[2022-05-09] MEDS: Mupirocin 2% Ointment 22 GM Tube TOP SCH ×2 (08:43→21:06)
[2022-05-09] MEDS: Preparation H Ointment 57 gram tube TOP SCH ×2 (08:51→21:06)
[2022-05-09] MEDS: Transdermal Patch Removal TOP SCH (10:32)
[2022-05-09] MEDS: Acetaminophen 325 MG TAB PO PRN (11:03)
[2022-05-09] MEDS: Cyclobenzaprine 10 MG TAB PO PRN (15:03)
[2022-05-09] MEDS ORDERED: Gabapentin 100 MG CAP PO SCH (21:00)
[2022-05-09] MEDS: traMADol HCl 50 MG TAB PO PRN (21:01)
[2022-05-09] MEDS: Famotidine 20 MG TAB PO SCH (21:02)
[2022-05-09] MEDS: Lidocaine 5% Patch TD SCH (21:05)
[2022-05-09 22:05] LABS: Bilirubin Negative (Negative); Blood, Urine Negative (Negative); Glucose, Urine (Dipstick) Negative (Negative); Ketone, Urine Negative (Negative); Leukocyte Large (Negative); Nitrite Negative (Negative); Protein, Urine (Dipstick) Negative (Neg-Trace); Specific Gravity, Urine 1.015 (1.005-1.030)
[2022-05-09 22:11] LABS: Bacteria/HPF 1+ HPF (None Seen); Clarity Hazy (Clear); RBC/HPF 0-3 HPF (0-3); Squamous Epithelial 0-3 HPF (0-3); WBC/HPF 21-50 HPF (0-3); Yeast-Budding Rare HPF (None Seen)
[2022-05-10 08:37] VITALS: BP 132/80; TEMP 97.7
[2022-05-10] MEDS: Levothyroxine Sodium 100 MCG TAB PO SCH (08:48)
[2022-05-10] MEDS: traMADol HCl 50 MG TAB PO PRN (08:48)
[2022-05-10] MEDS: Mupirocin 2% Ointment 22 GM Tube TOP SCH (09:00)
[2022-05-10] MEDS: Transdermal Patch Removal TOP SCH (09:00)
[2022-05-10] MEDS: Preparation H Ointment 57 gram tube TOP SCH (09:01)
[2022-05-10] MEDS: Nystatin Cream 15 GM TUBE TOP SCH (09:01)
== END 2022-05-10 13:15 | disposition hospice, inpatient (51) | DRG 552 ==
LOC: MADERS 14:13 → MADMS 17:31
PROVIDERS: ADMIT Family Medicine; ATTEND Family Medicine
PROC: 0T9B70Z Drainage of Bladder with Drainage Device, Via Natural or Artificial Opening (ICD-10-PCS; principal; 2022-04-06)
DX: S32.19XA Other fracture of sacrum, initial encounter for closed fracture (principal); S32.592A Other specified fracture of left pubis, initial encounter for closed fracture; N30.00 Acute cystitis without hematuria; K74.60 Unspecified cirrhosis of liver; E05.90 Thyrotoxicosis, unspecified without thyrotoxic crisis or storm; E03.9 Hypothyroidism, unspecified; Z66 Do not resuscitate; B95.62 Methicillin resistant Staphylococcus aureus infection as the cause of diseases classified elsewhere; F17.210 Nicotine dependence, cigarettes, uncomplicated; K64.4 Residual hemorrhoidal skin tags; Z20.822 Contact with and (suspected) exposure to COVID-19; W19.XXXA Unspecified fall, initial encounter; R33.9 Retention of urine, unspecified; E86.0 Dehydration; L30.9 Dermatitis, unspecified; K59.00 Constipation, unspecified; L89.159 Pressure ulcer of sacral region, unspecified stage; Z91.81 History of falling; Y93.9 Activity, unspecified; Y92.009 Unspecified place in unspecified non-institutional (private) residence as the place of occurrence of the external cause; Z90.49 Acquired absence of other specified parts of digestive tract; Z88.1 Allergy status to other antibiotic agents; Z88.0 Allergy status to penicillin; Z79.899 Other long term (current) drug therapy
CPT/HCPCS: 36415; 70450; 72100; 72170; 72220; 74176; 76856; 80048; 80053; 80202; 81001; 84443; 85025; 87077; 87086; 87186; 94640; J0696; J2060; J3370; J3490; J7042; J7050; J7626; Q0162; U0003; U0005